=== PATIENT | male | born 1990 | race Two or more races ===

== ENCOUNTER 2017-07-09 19:57 | Emergency (ER) | payer OTHER ==
[~2017-07-09] VITALS: Ht 177.8 cm; Wt 73.5 kg
--- NOTE | 2017-07-09 20:04 | NUR ---
PT BIB STAFF FROM THE PARKING LOT VIA WC. PT'S FRIENDS DROPPED PT OFF IN THE PARKING LOT AND STATED THAT THE PT TOOK "UNKNOWN AMOUNTS OF XANAX". PT IS DROSY, BUT EASILY AROUSED. PT WAS TRIAGED AND TAKEN TO ROOM #8. PT WAS PLACED ON THE MONITOR AND CONTINUOUS PULSE OX. PT'S RESP EVEN AND UNLABORED. PT'S O2 SAT IS VARYING BETWEEN 89% AND 91% ON RA. PT PLACED ON 8L O2 VIA SIMPLE MASK.
--- NOTE | 2017-07-09 20:08 | NUR ---
18G IV STARTED IN LFA. BLOOD DRAWN AND SENT TO LAB. IN AND OUT CATH TO BE DONE. IS AWARE.
[2017-07-09 20:13] LABS: BASOPHILS # (AUTO) 0.1 /CMM (0.0-0.2); EOSINOPHILS # (AUTO) 0.9 /CMM (0.0-0.7); EOSINOPHILS % (AUTO) 11.3 % (0.0-6.0); HEMATOCRIT 43 % (39-51); HEMOGLOBIN 15.1 g/dL (13.5-17.5); LYMPHOCYTES # (AUTO) 3.4 /CMM (0.8-4.8); LYMPHOCYTES % (AUTO) 40.4 % (20.0-44.0); MEAN CORPUSCULAR HEMOGLOBIN 29 PG (26.0-33.0); MEAN CORPUSCULAR HGB CONC 35 g/dl (31.0-36.0); MEAN CORPUSCULAR VOLUME 83 fL (80-96); MONOCYTES # (AUTO) 0.5 /CMM (0.1-1.30); MONOCYTES % (AUTO) 5.8 % (2.0-12.0); NEUTROPHILS # (AUTO) 3.5 /CMM (1.8-8.9); NEUTROPHILS % (AUTO) 41.5 % (43.0-81.0); PLATELET COUNT (AUTO) 214 /CMM (150-450); RDW COEFFICIENT OF VARIATION 12.8 (11.5-15.0); RED BLOOD CELL COUNT(AUTO) 5.16 MIL/uL (4.5-6.0); WHITE BLOOD COUNT (AUTO) 8.4 K/uL (4.3-11.0)
[2017-07-09 20:23] LABS: CALCIUM, SERUM 8.4 mg/dL (8.5-10.1); CARBON DIOXIDE 29 mmol/L (21-32); CHLORIDE 105 mmol/L (98-107); GLUCOSE 127 mg/dL (74-106); POTASSIUM 4.2 mmol/L (3.5-5.1); SODIUM SERUM 141 mmol/L (136-145); UREA NITROGEN, BLOOD 17 mg/dL (7-18)
[2017-07-09 20:31] LABS: ACETAMINOPHEN < 10 ug/ml (10-30); ALANINE AMINOTRANSFERASE 27 U/L (12-78); ALBUMIN 4.4 g/dL (3.4-5.0); ALCOHOL, BLOOD < 3 mg/dL (0-0); ALKALINE PHOSPHATASE 139 U/L (46-116); ASPARTATE AMINOTRANSFERASE 24 U/L (15-37); BILIRUBIN,DIRECT 0.1 mg/dL (0.0-0.2); BILIRUBIN,TOTAL 0.2 mg/dL (0.2-1.0); SALICYLATE 3.5 mg/dL (2.8-20.0); TOTAL PROTEIN, SERUM 7.6 g/dL (6.4-8.2)
[2017-07-09 20:35] LABS: APPEARANCE,URINE Clear (CLEAR); BILIRUBIN,URINE Negative (NEGATIVE); BLOOD, URINE Negative Ery/uL (NEGATIVE); COLOR,URINE Yellow (YELLOW); KETONES,URINE Negative (NEGATIVE); LEUKOCYTE ESTERASE ,URINE Negative (NEGATIVE); NITRITE, URINE Negative (NEGATIVE); PH,URINE 7.5 (5.0-8.0); PROTEIN,URINE Negative (NEGATIVE); UGLUCOSE Negative (NEGATIVE); UROBILINOGEN,URINE 0.2 EU/dL (0.2)
--- NOTE | 2017-07-09 20:50 | NUR ---
PT APPEARS TO BE RESTING COMFORTABLY WITH NO S/S OF PAIN OR DISTRESS. PT IS ON 8L O2 VIA SIMPLE MASK. VSS.
--- NOTE | 2017-07-09 21:39 | NUR ---
PT APPEARS TO BE SLEEPING SOUNDLY WITH NO S/S OF PAIN OR DISTRESS. PT IS ON THE MONITOR AND CONTINUOUS PULSE OX. VSS.
--- NOTE | 2017-07-09 23:01 | NUR ---
PT APPEARS TO BE SLEEPING SOUNDLY WITH NO S/S OF PAIN OR DISTRESS. VSS.
--- NOTE | 2017-07-10 00:35 | NUR ---
Patient is resting comfortably in bed with eyes closed. Easily aroused. VSS
--- NOTE | 2017-07-10 01:35 | NUR ---
PT WOKE UP AND AMBULATED TO THE NURSES STATION WITH A STEADY GAIT. PT STATED THAT HE FELT FINE AND DENIED SI. PT STATED THAT HE WAS JUST "HANGING OUT WITH HIS FRIENDS". PT AMBULATED BACK TO BED #[address] DONALDSON WAS NOTIFIED.
--- NOTE | 2017-07-10 01:39 | NUR ---
IV removed. Catheter intact and site benign. Pressure and 4x4 applied to site. No bleeding noted.Patient discharged to home in stable condition. Written and verbal after care instructions given. Patient verbalizes understanding of instruction. PT AMBULATED OUT TO THE LOBBY TO WAIT FOR UBER TO PICK HIM UP. VSS.
[2017-07-10 01:42] VITALS: BP 127/69
== END 2017-07-10 01:39 | disposition home or self-care (01) ==
LOC: EDBD 19:59 → ER 19:59
DX: F19.10 Other psychoactive substance abuse, uncomplicated (principal); F41.9 Anxiety disorder, unspecified
CPT/HCPCS: 36415; 80048; 80076; 80305; 80329; 81001; 85025; 99284; A4606; G0480 ×2; Z7610; 81000-TC